=== PATIENT | male | born 1960 | race Caucasian/White ===

== ENCOUNTER 2016-06-25 00:55 | Inpatient (IN) | payer OTHER ==
[2016-06-25] MEDS ORDERED: ACETAMINOPHEN 325 MG TAB PO PRN (01:00)
[2016-06-25] MEDS ORDERED: ALU/MAG/SIM 30 ML UDC PO PRN (01:00)
[2016-06-25] MEDS ORDERED: TRAZODONE 50 MG TAB PO PRN (01:00)
[2016-06-25] MEDS ORDERED: LORAZEPAM 2 MG TAB PO PRN (01:00)
[2016-06-25] MEDS ORDERED: MAG HYDROX 30 ML UDC PO PRN (01:00)
[2016-06-25] MEDS ORDERED: HALOPERIDOL 5 MG TAB PO PRN (01:00)
[2016-06-25] MEDS ORDERED: DIPHENHYDRAMINE 50 MG CAP PO PRN (01:00)
[2016-06-25] MEDS ORDERED: HALOPERIDOL 5 MG/ML VIAL IM PRN (01:00)
[2016-06-25] MEDS ORDERED: LORAZEPAM 2 MG/ML VIAL IM PRN (01:00)
[2016-06-25] MEDS ORDERED: DIPHENHYDRAMINE 50 MG/ML VIAL IM PRN (01:00)
[2016-06-25] MEDS ORDERED: HALOPERIDOL 5 MG/ML VIAL ONE (02:02)
[2016-06-25] MEDS ORDERED: LORAZEPAM 2 MG/ML VIAL ONE (02:03)
[2016-06-25] MEDS ORDERED: DIPHENHYDRAMINE 50 MG/ML VIAL ONE (02:04)
[2016-06-25] MEDS ORDERED: ZIPRASIDONE 20 MG INJ IM ONE (04:00)
[2016-06-25] MEDS ORDERED: DIAZEPAM 10 MG/2 ML SYR IM ONE (04:00)
[2016-06-25] MEDS ORDERED: DIAZEPAM 10 MG/2 ML SYR ONE (04:22)
[2016-06-25] MEDS ORDERED: WATER FOR INJ XX ONE (04:33)
[2016-06-25] MEDS ORDERED: NICOTINE 21 MG/24 HR TRANSDERM SCH (09:00)
[2016-06-25] MEDS ORDERED: MULTIVITS/MINERALS (THERAGRAN M) TAB PO SCH (09:00)
== END 2016-06-25 04:45 | disposition short-term general hospital (02) | DRG 886 ==
LOC: PSY 00:57
PROVIDERS: ADMIT Psychiatry & Neurology Psychiatry; ATTEND Psychiatry & Neurology Psychiatry
DX: F91.9 Conduct disorder, unspecified (principal); F39 Unspecified mood [affective] disorder
CPT/HCPCS: 36600; 80053; 82550; 82553; 82803; 82947; 83605; 83735; 84484; 85025; 85379; 87040

== ENCOUNTER 2016-06-25 04:00 | Inpatient (IN) | payer OTHER ==
[~2016-06-25] VITALS: Ht 182.9 cm; Wt 125.0 kg
[2016-06-25] VITALS (24 sets, daily range): BP systolic 120–189; RESP 16–36; TEMP 97.4–99.3; Ht 182.9 cm; Wt 125.0 kg
[2016-06-25] MEDS ORDERED: MAGNESIUM SULF 1 GM/100 ML 100 ML IV ONE (06:00)
[2016-06-25] MEDS ORDERED: MAGNESIUM SULF 1 GM/100 ML 100 ML IV SCH (06:00)
[2016-06-25] MEDS ORDERED: MIDAZOLAM HCL 5 MG/5 ML VIAL IM ONE (08:35)
[2016-06-25] MEDS: HALOPERIDOL 5 MG/ML VIAL IM PRN (09:03)
[2016-06-25] MEDS: OLANZAPINE 10 MG TAB PO SCH (09:40)
[2016-06-25] MEDS ORDERED: *PINK BRACELET XX ONE (15:20)
[2016-06-25] MEDS: SOD CHLOR 0.9% 1000 ML IV SCH (16:58)
[2016-06-25] MEDS ORDERED: LORAZEPAM 2 MG/ML VIAL IV PRN (19:15)
[2016-06-25] MEDS: *HOME MEDS KEPT IN PHARMACY XX SCH ×2 (20:00→23:04)
[2016-06-25] MEDS: BACLOFEN 10 MG TAB PO SCH (21:41)
[2016-06-25] MEDS: THIAMINE 100 MG TAB PO SCH (21:41)
[2016-06-25] MEDS: ATENOLOL 25 MG TAB PO SCH (21:41)
[2016-06-25] MEDS: FOLIC ACID 1 MG TAB PO SCH (21:42)
[2016-06-25] MEDS: HALOPERIDOL 1 MG TAB PO SCH (21:43)
[2016-06-26] VITALS (27 sets, daily range): BP systolic 104–181; RESP 11–27; TEMP 98–99.4
[2016-06-26] MEDS: HALOPERIDOL 5 MG/ML VIAL IM PRN (01:36)
[2016-06-26] MEDS: SOD CHLOR 0.9% 1000 ML IV SCH (02:34)
[2016-06-26] MEDS: BACLOFEN 10 MG TAB PO SCH (09:29)
[2016-06-26] MEDS: THIAMINE 100 MG TAB PO SCH (09:29)
[2016-06-26] MEDS: OLANZAPINE 10 MG TAB PO SCH (09:29)
[2016-06-26] MEDS: HALOPERIDOL 1 MG TAB PO SCH (09:30)
[2016-06-26] MEDS: ATENOLOL 25 MG TAB PO SCH ×2 (09:30→21:07)
[2016-06-26] MEDS: FOLIC ACID 1 MG TAB PO SCH (09:30)
[2016-06-26] MEDS: SODIUM CHLOR 0.9% W/KCL 20MEQ 1,000 ML IV SCH (11:58)
[2016-06-26] MEDS: LISINOPRIL 20 MG TAB PO SCH (11:59)
[2016-06-26] MEDS: *HOME MEDS KEPT IN PHARMACY XX SCH (20:00)
[2016-06-26] MEDS ORDERED: OLANZAPINE 10 MG TAB PO SCH (21:00)
[2016-06-27] VITALS (13 sets, daily range): BP systolic 103–155; RESP 11–29; TEMP 98.3–99
[2016-06-27] MEDS: SODIUM CHLOR 0.9% W/KCL 20MEQ 1,000 ML IV SCH (05:31)
[2016-06-27] MEDS: *HOME MEDS KEPT IN PHARMACY XX SCH (07:20)
[2016-06-27] MEDS: THIAMINE 100 MG TAB PO SCH (10:15)
[2016-06-27] MEDS: ATENOLOL 25 MG TAB PO SCH (10:16)
[2016-06-27] MEDS: LISINOPRIL 20 MG TAB PO SCH (10:16)
== END 2016-06-27 14:35 | DRG 885 ==
LOC: ENPENDDIS 04:00 → ICU 04:00 → EEVIPCON 04:00
PROVIDERS: ADMIT Family Medicine; ATTEND Family Medicine
DX: F23 Brief psychotic disorder (principal); N17.9 Acute kidney failure, unspecified; E87.3 Alkalosis; E83.42 Hypomagnesemia; E11.9 Type 2 diabetes mellitus without complications; I10 Essential (primary) hypertension; D72.829 Elevated white blood cell count, unspecified; F32.9 Major depressive disorder, single episode, unspecified; F20.9 Schizophrenia, unspecified; J44.9 Chronic obstructive pulmonary disease, unspecified; F17.210 Nicotine dependence, cigarettes, uncomplicated
CPT/HCPCS: 70450; 80048; 80053; 80307; 81001; 82947; 83605; 84439; 84443; 85025; 87040; 87088; 99223; 99233

== ENCOUNTER 2016-06-27 11:38 | Inpatient (IN) | payer OTHER ==
[~2016-06-27] VITALS: Ht 182.9 cm; Wt 128.8 kg
[2016-06-27] MEDS ORDERED: ALU/MAG/SIM 30 ML UDC PO PRN (11:55)
[2016-06-27] MEDS ORDERED: HALOPERIDOL 5 MG TAB PO PRN (11:55)
[2016-06-27] MEDS ORDERED: HALOPERIDOL 5 MG/ML VIAL IM PRN (11:55)
[2016-06-27] MEDS ORDERED: LORAZEPAM 2 MG TAB PO PRN (11:55)
[2016-06-27] MEDS ORDERED: LORAZEPAM 2 MG/ML VIAL IM PRN (11:55)
[2016-06-27] MEDS ORDERED: MAG HYDROX 30 ML UDC PO PRN (11:55)
[2016-06-27] MEDS ORDERED: DIPHENHYDRAMINE 50 MG CAP PO PRN (11:55)
[2016-06-27] MEDS ORDERED: DIPHENHYDRAMINE 50 MG/ML VIAL IM PRN (11:55)
[2016-06-27] MEDS: LISINOPRIL 20 MG TAB PO SCH (15:00)
[2016-06-27] MEDS: PANTOPRAZOLE 40 MG TAB PO SCH (15:00)
[2016-06-27] MEDS: ATENOLOL 25 MG TAB PO SCH ×2 (15:00→20:34)
[2016-06-27 15:01] VITALS: Ht 182.9 cm; Wt 128.8 kg
[2016-06-27 16:49] VITALS: BP_SYST 134; RESP 20; TEMP 99.7
[2016-06-27 19:14] VITALS: BP_SYST 157; RESP 18; TEMP 100.2
[2016-06-27] MEDS: ACETAMINOPHEN 325 MG TAB PO PRN (20:02)
[2016-06-27] MEDS: OLANZAPINE 10 MG TAB PO SCH (20:34)
[2016-06-27] MEDS: Atorvastatin 10 MG TAB PO SCH (20:34)
[2016-06-28] MEDS: PANTOPRAZOLE 40 MG TAB PO SCH (07:36)
[2016-06-28] MEDS: ACETAMINOPHEN 325 MG TAB PO PRN ×3 (07:56→17:23)
[2016-06-28 09:07] VITALS: BP_SYST 161; RESP 20; TEMP 98.2
[2016-06-28] MEDS: ATENOLOL 25 MG TAB PO SCH ×2 (09:23→21:00)
[2016-06-28] MEDS: LISINOPRIL 20 MG TAB PO SCH (09:23)
[2016-06-28] MEDS: VENLAFAXINE XR 75 MG CAP PO SCH (11:48)
[2016-06-28] MEDS: METFORMIN 500 MG TAB PO SCH (21:00)
[2016-06-28] MEDS: Atorvastatin 10 MG TAB PO SCH (21:00)
[2016-06-28] MEDS: glipiZIDE 10 MG TAB PO SCH (21:00)
[2016-06-28] MEDS: OLANZAPINE 10 MG TAB PO SCH (21:00)
[2016-06-28 21:24] VITALS: BP_SYST 164; RESP 18; TEMP 98.8
[2016-06-28] MEDS: TRAZODONE 50 MG TAB PO PRN (21:35)
[2016-06-29] MEDS: PANTOPRAZOLE 40 MG TAB PO SCH (07:29)
[2016-06-29 08:00] VITALS: BP_SYST 138; RESP 20; TEMP 98.7
[2016-06-29] MEDS: ACETAMINOPHEN 325 MG TAB PO PRN ×2 (08:04→17:01)
[2016-06-29] MEDS: VENLAFAXINE XR 75 MG CAP PO SCH (08:58)
[2016-06-29] MEDS: METFORMIN 500 MG TAB PO SCH ×2 (08:58→21:21)
[2016-06-29] MEDS: glipiZIDE 10 MG TAB PO SCH ×2 (08:58→21:21)
[2016-06-29] MEDS: LISINOPRIL 20 MG TAB PO SCH (08:58)
[2016-06-29] MEDS: ATENOLOL 25 MG TAB PO SCH ×2 (08:58→21:22)
[2016-06-29] MEDS: DICLOFENAC 25 MG TAB PO SCH ×3 (12:20→21:22)
[2016-06-29 19:01] VITALS: BP_SYST 155; RESP 20; TEMP 99.3
[2016-06-29] MEDS: Atorvastatin 10 MG TAB PO SCH (21:22)
[2016-06-29] MEDS: OLANZAPINE 10 MG TAB PO SCH (21:22)
[2016-06-29] MEDS: TRAZODONE 50 MG TAB PO PRN (21:23)
[2016-06-30] MEDS: PANTOPRAZOLE 40 MG TAB PO SCH (06:32)
[2016-06-30] MEDS: VENLAFAXINE XR 75 MG CAP PO SCH (09:03)
[2016-06-30] MEDS: DICLOFENAC 25 MG TAB PO SCH (09:03)
[2016-06-30] MEDS: ATENOLOL 25 MG TAB PO SCH (09:03)
[2016-06-30] MEDS: METFORMIN 500 MG TAB PO SCH (09:03)
[2016-06-30] MEDS: LISINOPRIL 20 MG TAB PO SCH (09:03)
[2016-06-30] MEDS: glipiZIDE 10 MG TAB PO SCH (09:03)
[2016-06-30 09:29] VITALS: BP_SYST 152; RESP 20; TEMP 98.4
[2016-06-30 10:12] VITALS: BP_SYST 152; RESP 20; TEMP 98.4
== END 2016-06-30 14:35 | disposition home or self-care (01) | DRG 885 ==
LOC: PSY 13:50
PROVIDERS: ADMIT Psychiatry & Neurology Psychiatry; ATTEND Psychiatry & Neurology Psychiatry
DX: F33.9 Major depressive disorder, recurrent, unspecified (principal); E11.9 Type 2 diabetes mellitus without complications; I10 Essential (primary) hypertension; F41.9 Anxiety disorder, unspecified; J44.9 Chronic obstructive pulmonary disease, unspecified
CPT/HCPCS: 82947